=== PATIENT | male | born 1950 | race Caucasian/White ===

== ENCOUNTER 2017-05-05 07:28 | Inpatient (IN) | payer BC, MEDICARE ==
[~2017-05-05] VITALS: Ht 172.7 cm; Wt 92.6 kg
[2017-05-05] MEDS ORDERED: ondansetron/PF 4mg/2ml inj IV ONE (07:45)
[2017-05-05] MEDS ORDERED: meclizine 12.5mg tablet PO ONE (07:45)
[2017-05-05] MEDS ORDERED: normal saline 1000ml 1,000 ML IV ONE (07:45)
[2017-05-05] MEDS ORDERED: ketorolac trometh. 30mg/ml inj. IV ONE (08:25)
[2017-05-05 08:27] LABS: CLARITY,URINE Clear (Clear); COLOR,URINE Yellow (Yellow); GLUCOSE, URINE >=1000 mg/dl (Neg); KETONES,URINE 15 mg/dl (Neg); LEUKOCYTE ESTERASE ,URINE Negative (Neg); NITRITES, URINE Negative (Neg); OCCULT BLOOD,URINE Negative (Neg); PROTEIN,URINE 30 mg/dl (Neg); UROBILINOGEN,URINE 0.2 E.U/dL (0.2-1.0)
[2017-05-05 08:30] LABS: UA COLLECTION TYPE CLN CATCH MIDSTREAM
[2017-05-05] MEDS ORDERED: ketorolac tromethamine 15mg/ml inj. IV ONE (08:35)
[2017-05-05 08:43] LABS: BACTERIA,URINE NONE SEEN /HPF (Neg); RBC,URINE NONE SEEN /HPF (0-2); WBC,URINE NONE SEEN /HPF (0-4)
[2017-05-05 08:44] LABS: SQUAMOUS EPITHELIAL CELL,UR FEW /LPF (FEW)
[2017-05-05] MEDS ORDERED: acetaminophen 325mg tablet PO ONE (09:10)
[2017-05-05] MEDS ORDERED: METF500T PO (10:46)
[2017-05-05] MEDS ORDERED: TEST200V10 IM (10:47)
[2017-05-05] MEDS ORDERED: GABA-532 PO (10:48)
[2017-05-05] MEDS ORDERED: GLIM1TAB46 PO (10:49)
[2017-05-05] MEDS ORDERED: LINA5TAB4 PO (10:49)
[2017-05-05] MEDS ORDERED: HYDROcodone/acetaminophen 5mg/325mg tablet PO PRN (11:10)
[2017-05-05] MEDS ORDERED: magnesium hydroxide 30ml (MOM) UD suspension PO PRN (11:10)
[2017-05-05] MEDS ORDERED: morphine sulfate 8 MG/ML SYRINGE IV PRN ×2 (11:10)
[2017-05-05] MEDS ORDERED: mag hydrox/Alum hydrox/simeth 30ml oral suspension PO PRN (11:10)
[2017-05-05] MEDS ORDERED: ondansetron/PF 4mg/2ml inj IV PRN (11:10)
[2017-05-05] MEDS ORDERED: HYDROcodone/acetaminophen 10/325mg tab PO PRN (11:10)
[2017-05-05 11:32] LABS: BASOPHILS % (AUTO) 0.2 % (0-1); EOSINOPHILS # (AUTO) 0.2 X10'3 (0-0.9); EOSINOPHILS % (AUTO) 1.3 % (0-6); HEMATOCRIT 44.9 % (42.0-52.0); HEMOGLOBIN 15.1 g/dl (14.0-17.9); LYMPHOCYTES # (AUTO) 1.4 X10'3 (1.1-4.8); LYMPHOCYTES % (AUTO) 11.6 % (21-51); MEAN CORPUSCULAR HEMOGLOBIN 30.1 PG (27.0-31.0); MEAN CORPUSCULAR HGB CONC 33.7 % (33.0-36.5); MEAN CORPUSCULAR VOLUME 89.4 FL (78-98); MEAN PLATELET VOLUME 9.2 FL (7.4-10.4); MONOCYTES # (AUTO) 0.6 X10'3 (0-0.9); MONOCYTES % (AUTO) 5.3 % (2-12); NEUTROPHILS # (AUTO) 9.7 X10'3 (1.8-7.7); NEUTROPHILS % (AUTO) 81.6 % (42-75); PLATELET COUNT 139 X10'3 (140-440); RED BLOOD COUNT 5.02 X10'6 (4.70-6.10); RED CELL DISTRIBUTION WIDTH 13.5 % (11.5-14.5); WHITE BLOOD COUNT 11.9 X10'3 (4.5-11.0)
[2017-05-05 11:47] LABS: ALANINE AMINOTRANSFERASE 34 U/L (12-78); ALBUMIN 3.7 G/DL (3.4-5.0); ALBUMIN/GLOBULIN RATIO 1.2 (1.1-1.5); ALKALINE PHOSPHATASE 54 IU/L (46-116); ANION GAP 11 (8-16); ASPARTATE AMINO TRANSFERASE 16 U/L (10-37); BILIRUBIN,TOTAL 0.6 MG/DL (0.1-1.0); BLOOD UREA NITROGEN 17 MG/DL (7-18); CALCIUM 8.6 MG/DL (8.5-10.1); CHLORIDE 100 MMOL/L (99-107); CREATININE 1.21 MG/DL (0.60-1.10); GLUCOSE 194 MG/DL (70-104); POTASSIUM 4.7 MMOL/L (3.5-5.1); SODIUM 135 MMOL/L (135-145); TOTAL CARBON DIOXIDE 24.1 MMOL/L (24-32); TOTAL PROTEIN 6.8 G/DL (6.4-8.2); eGFR 60 ML/MIN
[2017-05-05] MEDS ORDERED: aspirin 81mg tab.chew PO ONE ×2 (12:40→20:00)
[2017-05-05 12:50] LABS: HEMOGLOBIN A1C 7.7 % (4.5-6.2)
[2017-05-05 13:20] VITALS: BP 163/90
[2017-05-05 18:00] VITALS: BP 183/91
[2017-05-05] MEDS: docusate sod 100mg capsule PO SCH (20:42)
[2017-05-05] MEDS: acetaminophen 325mg tablet PO PRN (20:42)
[2017-05-05] MEDS: normal saline 1000ml 1,000 ML IV SCH (20:49)
[2017-05-05] MEDS ORDERED: temazepam 15mg capsule PO PRN (21:00)
[2017-05-05 22:00] VITALS: BP 167/79
[2017-05-06] VITALS (7 sets, daily range): BP systolic 128–183; BP diastolic 80–109
[2017-05-06] MEDS: normal saline 1000ml 1,000 ML IV SCH ×2 (02:40→10:14)
[2017-05-06] MEDS: docusate sod 100mg capsule PO SCH ×2 (07:42→19:21)
[2017-05-06] MEDS: glimepiride 1 MG tablet PO SCH (07:42)
[2017-05-06] MEDS: metFORMIN 500mg tablet PO SCH ×2 (07:42→17:27)
[2017-05-06 07:43] LABS: PROTHROMBIN TIME 10.3 SECONDS (9.0-12.0)
[2017-05-06] MEDS: aspirin 325mg tablet, delayed-release (Ecotrin) PO SCH (07:43)
[2017-05-06 07:50] LABS: BASOPHILS % (AUTO) 0.2 % (0-1); EOSINOPHILS # (AUTO) 0.3 X10'3 (0-0.9); EOSINOPHILS % (AUTO) 2.8 % (0-6); HEMATOCRIT 46.1 % (42.0-52.0); HEMOGLOBIN 15.7 g/dl (14.0-17.9); LYMPHOCYTES # (AUTO) 1.9 X10'3 (1.1-4.8); LYMPHOCYTES % (AUTO) 21.3 % (21-51); MEAN CORPUSCULAR HEMOGLOBIN 30.4 PG (27.0-31.0); MEAN CORPUSCULAR VOLUME 89.6 FL (78-98); MEAN PLATELET VOLUME 9.7 FL (7.4-10.4); MONOCYTES # (AUTO) 0.8 X10'3 (0-0.9); MONOCYTES % (AUTO) 8.7 % (2-12); NEUTROPHILS # (AUTO) 6.1 X10'3 (1.8-7.7); PLATELET COUNT 143 X10'3 (140-440); RED BLOOD COUNT 5.15 X10'6 (4.70-6.10); RED CELL DISTRIBUTION WIDTH 13.5 % (11.5-14.5); WHITE BLOOD COUNT 9.1 X10'3 (4.5-11.0)
[2017-05-06] MEDS: acetaminophen 325mg tablet PO PRN ×2 (07:51→16:20)
[2017-05-06 07:54] LABS: ALBUMIN 3.7 G/DL (3.4-5.0); ANION GAP 8 (8-16); BLOOD UREA NITROGEN 18 MG/DL (7-18); BUN/CREATININE RATIO 15.8 (5.4-32.0); CALCIUM 8.8 MG/DL (8.5-10.1); CHLORIDE 102 MMOL/L (99-107); CHOL/HDL RATIO 4.2 (0.00-4.99); CHOLESTEROL 191 MG/DL (0-200); CREATININE 1.14 MG/DL (0.60-1.10); GLUCOSE 196 MG/DL (70-104); HDL CHOLESTEROL 46 MG/DL (35-60); LDL CHOLESTEROL 141 MG/DL (50-100); MAGNESIUM 1.6 MG/DL (1.5-2.4); POTASSIUM 4.4 MMOL/L (3.5-5.1); SODIUM 136 MMOL/L (135-145); TOTAL CARBON DIOXIDE 25.9 MMOL/L (24-32); TRIGLYCERIDES 146 MG/DL (20-135); eGFR 64 ML/MIN
[2017-05-06] MEDS ORDERED: gabapentin 300mg capsule PO SCH (08:00)
[2017-05-06] MEDS: linagliptin 5mg tablet PO SCH (09:07)
[2017-05-06] MEDS ORDERED: TESTOSTERONE CYPIONATE 200 MG/ML IM SCH (10:00)
[2017-05-06] MEDS ORDERED: GABA-532 PO (17:25)
[2017-05-06] MEDS: clopidogrel 75mg tablet PO SCH (19:21)
[2017-05-07] MEDS: normal saline 1000ml 1,000 ML IV SCH (00:05)
[2017-05-07] MEDS: acetaminophen 325mg tablet PO PRN ×3 (02:10→17:54)
[2017-05-07 02:16] VITALS: BP_SYST 163; BP_DIAS 102; BP_DIAS 96
[2017-05-07 06:00] VITALS: BP_SYST 150; BP_SYST 163; BP_DIAS 88; BP_DIAS 96
[2017-05-07 06:40] LABS: BASOPHILS % (AUTO) 0.2 % (0-1); EOSINOPHILS # (AUTO) 0.3 X10'3 (0-0.9); HEMATOCRIT 48.3 % (42.0-52.0); HEMOGLOBIN 16.3 g/dl (14.0-17.9); LYMPHOCYTES # (AUTO) 1.9 X10'3 (1.1-4.8); LYMPHOCYTES % (AUTO) 22.6 % (21-51); MEAN CORPUSCULAR HEMOGLOBIN 30.1 PG (27.0-31.0); MEAN CORPUSCULAR HGB CONC 33.8 % (33.0-36.5); MEAN PLATELET VOLUME 9.2 FL (7.4-10.4); MONOCYTES # (AUTO) 0.8 X10'3 (0-0.9); MONOCYTES % (AUTO) 9.4 % (2-12); NEUTROPHILS # (AUTO) 5.4 X10'3 (1.8-7.7); NEUTROPHILS % (AUTO) 64.8 % (42-75); PLATELET COUNT 149 X10'3 (140-440); RED BLOOD COUNT 5.43 X10'6 (4.70-6.10); WHITE BLOOD COUNT 8.4 X10'3 (4.5-11.0)
[2017-05-07 06:52] LABS: ALBUMIN 3.7 G/DL (3.4-5.0); ANION GAP 10 (8-16); BLOOD UREA NITROGEN 19 MG/DL (7-18); BUN/CREATININE RATIO 17.6 (5.4-32.0); C-REACTIVE PROTEIN 0.16 MG/DL (0.0-0.5); CALCIUM 8.8 MG/DL (8.5-10.1); CHLORIDE 100 MMOL/L (99-107); CREATININE 1.08 MG/DL (0.60-1.10); GLUCOSE 165 MG/DL (70-104); MAGNESIUM 1.7 MG/DL (1.5-2.4); POTASSIUM 4.2 MMOL/L (3.5-5.1); SODIUM 135 MMOL/L (135-145); TOTAL CARBON DIOXIDE 24.9 MMOL/L (24-32); eGFR 68 ML/MIN
[2017-05-07 06:53] LABS: PROTHROMBIN TIME 10.2 SECONDS (9.0-12.0)
[2017-05-07 07:13] LABS: RHEUM FACTOR QUAL REFLEX TITER NEGATIVE (Neg)
[2017-05-07] MEDS: metFORMIN 500mg tablet PO SCH ×2 (07:29→16:52)
[2017-05-07] MEDS: clopidogrel 75mg tablet PO SCH (07:29)
[2017-05-07] MEDS: aspirin 325mg tablet, delayed-release (Ecotrin) PO SCH (07:29)
[2017-05-07] MEDS: glimepiride 1 MG tablet PO SCH (07:30)
[2017-05-07] MEDS: docusate sod 100mg capsule PO SCH (07:30)
[2017-05-07] MEDS: linagliptin 5mg tablet PO SCH (07:30)
[2017-05-07 08:00] VITALS: BP_SYST 142; BP_SYST 169; BP_SYST 174; BP_DIAS 90; BP_DIAS 91; BP_DIAS 92
[2017-05-07 10:00] VITALS: BP_SYST 150; BP_SYST 163; BP_DIAS 88; BP_DIAS 96
[2017-05-07 14:00] VITALS: BP 157/91
[2017-05-07] MEDS ORDERED: ATOR20TA66 PO (16:58)
[2017-05-07 18:00] VITALS: BP 169/96
[2017-05-07] MEDS ORDERED: CLOP75TA17 PO (19:07)
[2017-05-07] MEDS ORDERED: gabapentin 300mg capsule PO SCH (21:00)
== END 2017-05-07 19:28 | disposition home or self-care (01) | DRG 66 ==
LOC: ER 07:29 → ED HOLD 11:08 → ORTHO 4S 13:20
PROVIDERS: ADMIT Internal Medicine; ATTEND Internal Medicine
DX: I63.9 Cerebral infarction, unspecified (principal); E86.0 Dehydration; E11.9 Type 2 diabetes mellitus without complications; E78.00 Pure hypercholesterolemia, unspecified; F41.9 Anxiety disorder, unspecified; H53.2 Diplopia; Z79.899 Other long term (current) drug therapy; Z91.81 History of falling
CPT/HCPCS: 36415; 70450; 70544; 70551; 72125; 80048; 80053; 80061; 81001; 82948; 83036; 83735; 85025; 85610; 85651; 86038; 86140; 86430; 87070; 92616; 93005; 93306; 93880; 96361; 96374; 96375; 97116; 97162; 97530; 99285; A6213; J1885; J2405; J7030; J8597

== ENCOUNTER 2023-04-20 07:46 | Day surgery (SDC) | payer MEDICARE, BC ==
[2023-04-20] VITALS (13 sets, daily range): BP systolic 100–152; BP diastolic 55–78; PULSE 59–79; RESP 10–20; TEMP 98.2; O2SAT 94–99
[~2023-04-20] VITALS: Ht 172.7 cm; Wt 87.0 kg
[~2023-04-20 07:46] MED LIST: AMA1T PO; ATOR20TA66 PO; CLOP75TA9 PO; GABA-532 PO; LINA5TAB4 PO; METF500T PO; TEST200V33 IM
[2023-04-20] MEDS ORDERED: normal saline 1000ml 1,000 ML IV SCH (08:10)
[2023-04-20] MEDS ORDERED: fentaNYL/PF 50MCG/1 ML 2ML syringe IV ONE (08:10)
[2023-04-20] MEDS ORDERED: MIDAZolam 1mg/ml 10ml vial IV ONE (08:10)
[2023-04-20] MEDS ORDERED: SEMA0.258 SQ (08:23)
[2023-04-20] MEDS ORDERED: ATOR40TA72 PO (08:23)
[2023-04-20] MEDS ORDERED: BISO-2 PO (08:23)
[2023-04-20] MEDS ORDERED: CHOL500050 PO (08:23)
[2023-04-20] MEDS ORDERED: FISH1CAP15 PO (08:23)
[2023-04-20] MEDS ORDERED: FLO0.4C PO (08:23)
[2023-04-20] MEDS ORDERED: CHOL500061 PO (08:23)
[2023-04-20] MEDS ORDERED: APIX5TAB3 PO (08:23)
[2023-04-20] MEDS ORDERED: EMPA25TA PO (08:23)
[2023-04-20] MEDS ORDERED: MAGN250T11 PO (08:25)
[2023-04-20] MEDS ORDERED: vitamin b12 PO (08:25)
== END 2023-04-20 14:35 | disposition home or self-care (01) ==
LOC: SSTAY O 07:46
PROVIDERS: ATTEND Student in an Organized Health Care Education/Training Program
DX: I35.0 Nonrheumatic aortic (valve) stenosis (principal); E78.5 Hyperlipidemia, unspecified; E11.9 Type 2 diabetes mellitus without complications; I47.10 Supraventricular tachycardia, unspecified; Z86.73 Personal history of transient ischemic attack (TIA), and cerebral infarction without residual deficits; Z79.84 Long term (current) use of oral hypoglycemic drugs; Z79.899 Other long term (current) drug therapy
CPT/HCPCS: 93312; 93325; 94760; J2250; J3010; J7030; A4620